=== PATIENT | male | born 1940 | race Caucasian/White ===

== ENCOUNTER 2018-09-21 13:12 | Emergency (ER) | payer OTHER ==
[2018-09-21] MEDS ORDERED: TETANUS/DIPHTHERIA TOXOID [ADULT] 0.5 ML VIAL IM ONE (13:31)
[2018-09-21] MEDS ORDERED: LIDOCAINE HCL 1% 20 ML VIAL ONE (13:31)
== END 2018-09-21 13:46 | disposition home or self-care (01) ==
LOC: EDH 13:12
DX: S01.511A Laceration without foreign body of lip, initial encounter (principal); I10 Essential (primary) hypertension; Z72.0 Tobacco use; W01.198A Fall on same level from slipping, tripping and stumbling with subsequent striking against other object, initial encounter; Y93.89 Activity, other specified; Y92.89 Other specified places as the place of occurrence of the external cause; Y99.8 Other external cause status
CPT/HCPCS: 12051; 90471; 90714